=== PATIENT | male | born 1975 | race African-American/Black ===

== ENCOUNTER 2021-06-20 12:32 | Emergency (ER) | payer OTHER, SELFPAY ==
[2021-06-20] MEDS ORDERED: HYDROcodone/Acetaminophen 5/325 mg Tablet ONE (16:07)
== END 2021-06-20 16:10 ==
LOC: CSHERS 12:32 → EEVIPCON 12:32 → CSHERS 16:10
DX: S82.201A Unspecified fracture of shaft of right tibia, initial encounter for closed fracture (principal); S82.401A Unspecified fracture of shaft of right fibula, initial encounter for closed fracture; X50.9XXA Other and unspecified overexertion or strenuous movements or postures, initial encounter; F17.210 Nicotine dependence, cigarettes, uncomplicated
CPT/HCPCS: 27808